=== PATIENT | female | born 1960 | race Caucasian/White ===

== ENCOUNTER 2017-10-15 05:45 | Inpatient (IN) | payer OTHER ==
[~2017-10-15] VITALS: Ht 160 cm; Wt 63.5 kg
[2017-10-15] MEDS ORDERED: VASOPRESSIN 20 UNIT/ML 1ML ONE (06:14)
[2017-10-15] MEDS ORDERED: INDOCYANINE GREEN 25 MG VIAL IV NR (06:15)
[2017-10-15] MEDS ORDERED: BUPIVACAINE HCL/EPINEPHRINE/PF 0.5%/0.0005 10ML ONE (06:16)
[2017-10-15] MEDS ORDERED: SKIN ADHESIVE 0.7 GM EA TOP ONE ×3 (06:16→17:10)
[2017-10-15] MEDS ORDERED: BUPIVACAINE HCL 0.5% (5MG/ML) 50ML ONE (06:16)
[2017-10-15] MEDS ORDERED: LACTATED RINGERS 1,000 ML IV SCH (06:30)
[2017-10-15 07:18] LABS: BASOPHILS % 0.7 % (0.0-2.0); EOSINOPHILS % 2.1 % (0.0-5.0); HEMATOCRIT. 38.8 % (36.0-48.0); LYMPHOCYTES % 32.9 % (20.0-50.0); MEAN CORPUSCULAR HEMOGLOBIN 29.2 pg (28.0-32.0); MEAN CORPUSCULAR VOLUME 86.9 fL (81.0-99.0); MEAN PLATELET VOLUME 7.7 fl (7.4-10.4); MONOCYTES % 9.2 % (2.0-8.0); NEUTROPHILS % 55.1 % (40.0-76.0); PLATELET 264 x1000/uL (130-400); RED BLOOD CELL COUNT 4.46 mill/uL (4.2-5.4); RED CELL DISTRIBUTION WIDTH 12.6 % (11.6-14.6)
[2017-10-15 07:26] LABS: PARTIAL THROMBOPLASTIN TIME 25.7 sec (23.4-31.0); PROTHROMBIN TIME 10.6 sec (9.4-11.6)
[2017-10-15] MEDS ORDERED: LIDOCAINE HCL/PF 1% 10 MG/ML 5ML VIAL ONE (07:36)
[2017-10-15] MEDS ORDERED: PROPOFOL 200MG/20ML VIAL IV ONE ×2 (07:36→09:41)
[2017-10-15] MEDS ORDERED: SUCCINYLCHOLINE CHLORIDE 200MG/10ML VIAL IV ONE (07:36)
[2017-10-15] MEDS ORDERED: GLYCOPYRROLATE 0.2 MG/ML 2ML VIAL ONE (07:36)
[2017-10-15] MEDS ORDERED: NEOSTIGMINE METHYLSULFATE 1MG/ML 10 ML VIAL ONE (07:36)
[2017-10-15] MEDS ORDERED: ROCURONIUM BROMIDE 10MG/ML VIAL 5ML IV ONE ×2 (07:36→08:28)
[2017-10-15] MEDS ORDERED: MIDAZOLAM HCL 2 MG/2 ML VIAL ONE (07:36)
[2017-10-15] MEDS ORDERED: FENTANYL CITRATE/PF 50MCG/ML 2ML VIAL ONE ×3 (07:36→11:52)
[2017-10-15] MEDS ORDERED: PHENYLEPHRINE HCL 10 MG/ML 1ML (IV VIAL) IV ONE (07:37)
[2017-10-15] MEDS ORDERED: METOCLOPRAMIDE HCL 10MG/2ML VIAL ONE (07:37)
[2017-10-15] MEDS ORDERED: ONDANSETRON HCL 4MG/2ML VIAL ONE (07:37)
[2017-10-15] MEDS ORDERED: DEXAMETHASONE 4MG/ML 1ML VIAL ONE (07:55)
[2017-10-15] MEDS ORDERED: CEFAZOLIN SODIUM 1000MG/VIAL ONE (08:02)
[2017-10-15 08:15] LABS: CHLORIDE 109 mEq/L (98-107)
[2017-10-15 08:30] LABS: CLARITY URINE CLEAR (CLEAR); COLOR URINE YELLOW (YELLOW); KETONES URINE NEGATIVE (NEGATIVE); LEUKOCYTE ESTERASE URINE NEGATIVE (NEGATIVE); NITRITE URINE NEGATIVE (NEGATIVE); OCCULT BLOOD URINE NEGATIVE (NEGATIVE); PH URINE 7.5 (4.5-8.0); PROTEIN URINE NEGATIVE (NEGATIVE); UROBILINOGEN URINE 0.2 E.U./dL (0.2-1.0)
[2017-10-15 08:34] LABS: UCG SCREEN NEGATIVE
[2017-10-15] MEDS ORDERED: LABETALOL HCL 5MG/ML VIAL 20ML IV ONE (09:47)
[2017-10-15] MEDS ORDERED: IBUP-1653 PO (10:46)
[2017-10-15] MEDS ORDERED: ONDANSETRON HCL 4MG/2ML VIAL IV PRN (12:45)
[2017-10-15] MEDS ORDERED: MEPERIDINE HCL/PF 25MG/ML CPJ IV PRN (12:45)
[2017-10-15] MEDS: HYDROMORPHONE HCL/PF 2MG/ML CPJ IV PRN ×3 (12:56→13:41)
[2017-10-15] MEDS ORDERED: MORPHINE SULFATE 4 MG/ML CPJ (NOT FOR IM USE) IV PRN (13:00)
[2017-10-15] MEDS ORDERED: SODIUM CHLORIDE 0.9% 1,000 ML IV ONE (13:00)
[2017-10-15] MEDS ORDERED: IBUPROFEN 600MG TABLET PO PRN (15:45)
[2017-10-15 16:00] VITALS: BP 151/89
[2017-10-15 17:00] VITALS: BP 151/89
[2017-10-15] MEDS ORDERED: HYDROCODONE/ACETAMINOPHEN 10/325MG TABLET PO PRN (17:30)
[2017-10-15] MEDS: DEXT 5%/LACTATED RINGERS 1,000 ML IV SCH (19:58)
[2017-10-15 20:00] VITALS: BP 159/90
[2017-10-16] VITALS: BP 154/90
[2017-10-16 04:00] VITALS: BP 155/87
[2017-10-16] MEDS: DEXT 5%/LACTATED RINGERS 1,000 ML IV SCH (04:10)
[2017-10-16 07:31] LABS: BASOPHILS % 0.2 % (0.0-2.0); HEMOGLOBIN. 11.6 g/dL (12.0-16.0); MEAN CORPUSCULAR HEMOGLOBIN 30.3 pg (28.0-32.0); MEAN CORPUSCULAR VOLUME 86.1 fL (81.0-99.0); MEAN PLATELET VOLUME 7.7 fl (7.4-10.4); NEUTROPHILS % 68.8 % (40.0-76.0); PLATELET 226 x1000/uL (130-400); RED BLOOD CELL COUNT 3.84 mill/uL (4.2-5.4); RED CELL DISTRIBUTION WIDTH 12.7 % (11.6-14.6)
[2017-10-16] MEDS: DOCUSATE SODIUM 100MG CAPSULE PO SCH (09:00)
[2017-10-16 20:00] VITALS: BP 154/89
[2017-10-17] VITALS: BP 155/91
[2017-10-17 04:00] VITALS: BP 137/76
[2017-10-17 08:00] VITALS: BP 144/88
[2017-10-17] MEDS: DOCUSATE SODIUM 100MG CAPSULE PO SCH (08:52)
[2017-10-17 12:00] VITALS: BP 163/91
[2017-10-17 14:41] VITALS: BP 144/88
[2017-10-17 15:04] VITALS: BP 146/82
== END 2017-10-17 15:15 | disposition home or self-care (01) | DRG 742 ==
LOC: OR 05:45 → 6EST 05:46
PROVIDERS: ADMIT Obstetrics & Gynecology Obstetrics; ATTEND Obstetrics & Gynecology Obstetrics
PROC: 0UT94ZZ Resection of Uterus, Percutaneous Endoscopic Approach (ICD-10-PCS; 2017-10-15)
PROC: 0UT24ZZ Resection of Bilateral Ovaries, Percutaneous Endoscopic Approach (ICD-10-PCS; 2017-10-15)
PROC: 0UT74ZZ Resection of Bilateral Fallopian Tubes, Percutaneous Endoscopic Approach (ICD-10-PCS; 2017-10-15)
PROC: 8E0W4CZ Robotic Assisted Procedure of Trunk Region, Percutaneous Endoscopic Approach (ICD-10-PCS; 2017-10-15)
PROC: 0DQ Gastrointestinal System, Repair (ICD-10-PCS; principal; 2017-10-15 07:30)
DX: D25.9 Leiomyoma of uterus, unspecified (principal); S36.509A Unspecified injury of unspecified part of colon, initial encounter; G89.29 Other chronic pain; N92.0 Excessive and frequent menstruation with regular cycle; N83.312 Acquired atrophy of left ovary; N83.311 Acquired atrophy of right ovary; Z90.710 Acquired absence of both cervix and uterus; Z79.899 Other long term (current) drug therapy; Z79.1 Long term (current) use of non-steroidal anti-inflammatories (NSAID); Y93.89 Activity, other specified; Y92.89 Other specified places as the place of occurrence of the external cause; Y99.8 Other external cause status
CPT/HCPCS: 36415; 80048; 81003; 81025; 85025; 85610; 85730; 88307; 93005; J0171; J0330; J0690; J1100; J1170; J2250; J2370; J2405; J2704; J2710; J2765; J3010; J3490; J7120; J7121; Q9957